=== PATIENT | female | born 1950 | race Caucasian/White ===

== ENCOUNTER → 2017-06-25 | Day surgery (SDC) | payer MEDICARE, OTHER ==
[~2017-06-25] VITALS: Ht 160 cm; Wt 91.8 kg
[~2017-06-25] MED LIST: ADVA115A INH; ASPI325T PO; CHLORHEXIDINE GLUCONATE 2 % 1 PACK (2 CLOTHS) TOPICAL PRN; DIGO0.12 PO; DIOV40TA PO; DO NOT ADM ANY ANTICOAGULANT DRUGS PRN; ESTR42.5V VAGINAL; GLUCTAB PO; INSULIN HUMAN REGULAR 1,000 UNITS/10 ML VIAL SQ PRN; LACTATED RINGER'S 1000 ML IV PRN; METOPROLOL TARTRATE 25 MG TAB PO PRN; MONT10TA2 PO; NIZA150C2 PO; ONDANSETRON HCL 4 MG/2 ML VIAL IV PUSH PRN; PERC5TAB12 PO; POVIDONE IODINE 5% (ANTISEPSIS KIT) 4 APPLICATIONS EACH NARE PRN; PROPOFOL 200 MG/20 ML AMP IV ONE; SODIUM CHLORID 0.9% 500 ML IV PRN; SPIR25 PO; SYMB160A INH; TAMS5CAP PO; TOPR100T PO; ZOFR4TAB3 SL; ceFAZolin 1,000 MG/NS 100 ML IV SCH
[2017-06-25 06:30] VITALS: BP 141/73; PULSE 94; RESP 20; TEMP 97.9; O2SAT 98
--- NOTE | 2017-06-25 06:35 | RADRPT ---
EXAM DATE/TIME: 06/25/2017 06:21 [place] COMPARISON: No previous studies available for comparison. INDICATIONS : Pre OP lithotripsy. MEDICAL HISTORY : None. SURGICAL HISTORY : None. ENCOUNTER: Initial ACUITY: 1 day PAIN SCORE: 0/10 LOCATION: Bilateral abdomen FINDINGS: Supine view of the abdomen was performed. 5 x 9 mm calcification overlies right kidney The abdominal bowel gas pattern is normal. No abnormal masses, or organomegaly is seen. The osseous structures a re unremarkable. Pacemaker overlies the heart CONCLUSION: Normal examination except for right renal calcification. Mason Lo MD on June 25, 2017 at 6:33 Board Certified Radiologist. This report was verified electronically.
[2017-06-25 07:31] LABS: AUTOMATED NEUTROPHIL # 5.1 TH/MM3 (1.8-7.7); BASOPHIL % 0.2 % (0.0-2.0); EOSINOPHIL # 0.3 TH/MM3 (0-0.4); EOSINOPHIL % 3.6 % (0.0-4.0); HEMATOCRIT 40.5 % (35.0-46.0); HEMO FLAGS DIFF FINAL; LYMPH % 31.1 % (9.0-44.0); LYMPHOCYTE # 2.7 TH/MM3 (1.0-4.8); MEAN CELL VOLUME 88.3 FL (80.0-100.0); MEAN CORPUSCULAR HEMOGLOBIN 30.2 PG (27.0-34.0); MEAN CORPUSCULAR HGB CONC 34.2 % (32.0-36.0); MONO % 6.5 % (0.0-8.0); NEUT % 58.6 % (16.0-70.0); PLATELET COUNT 242 TH/MM3 (150-450); RED BLOOD COUNT 4.59 MIL/MM3 (4.00-5.30); RED CELL DISTRIBUTION WIDTH 12.8 % (11.6-17.2); WHITE BLOOD COUNT 8.7 TH/MM3 (4.0-11.0)
--- NOTE | 2017-06-25 08:31 | PD.OP ---
Operative Report Date of Surgery: Jun 25, 2017 Preoperative Diagnosis: Right renal calculus Postoperative Diagnosis: Same Procedure: Right extracoporeal shockwave lithotripsy Anesthesia: TIVA Surgeon: Alan Mccauley Mechanical Systems Engineer(s): None Resident Surgeon: None Operation and Findings: 67-year-old female with findings of a 7 mm right lower pole stone. The patient elected to undergo right extracorporeal shockwave lithotripsy. Risk and benefits were discussed and she was willing to proceed. Patient was brought to the operating room and identified by myself as [place]. She is placed on the operating room table in the supine position and received to anesthesia. Preprocedure antibiotics were also administered. Under fluoroscopic imaging guidance and ultrasound guidance the stone was visualized in the right lower pole. Extracorporeal shockwave lithotripsy commenced with good fragmentation identified on imaging. She received a total of 2000 shocks. She tolerated the procedure well and was transferred to the recovery room in stable condition. She'll follow-up in 2 weeks and obtain an x-ray prior to her clinic visit. Alan Mccauley DO Jun 25, 2017 08:31
[2017-06-25 09:45] VITALS: BP 103/56; PULSE 81; RESP 16; TEMP 98.1; O2SAT 97
--- NOTE | 2017-06-25 14:53 | EKG ---
Date Performed: 06/25/2017 Time Performed: 06:38:39 PTAGE: 67 years EKG: Sinus rhythm WITH FREQUENT VENTRICULAR PREMATURE COMPLEXES MODERATE INTRAVENTRICULAR CONDUCTION DELAY NONSPECIFIC ST & T-WAVE ABNORMALITY ABNORMAL ECG INTERPRETATION BASED ON A DEFAULT AGE OF 40 YEARS PREVIOUS TRACING : 08/11/2014 06.53 Compared to the previous tracing, PVCs now noted DOCTOR: Joseluis Nuñez Interpretating Date/Time 06/25/2017 14:51:13
== END | disposition home or self-care (01) ==
LOC: HSDC 05:37
PROVIDERS: ATTEND Urology
DX: N20.0 Calculus of kidney (principal); I10 Essential (primary) hypertension; E11.9 Type 2 diabetes mellitus without complications; I49.9 Cardiac arrhythmia, unspecified; J45.909 Unspecified asthma, uncomplicated; K21.9 Gastro-esophageal reflux disease without esophagitis; M19.90 Unspecified osteoarthritis, unspecified site; Z01.810 Encounter for preprocedural cardiovascular examination; Z95.810 Presence of automatic (implantable) cardiac defibrillator; Z87.440 Personal history of urinary (tract) infections; Z79.84 Long term (current) use of oral hypoglycemic drugs; Z79.82 Long term (current) use of aspirin; Z79.899 Other long term (current) drug therapy
CPT/HCPCS: 00872; 50590; 74000; 85025; 93005; J0690; J7120

== ENCOUNTER 2017-08-16 16:23 | Emergency (ER) | payer MEDICARE, OTHER ==
[~2017-08-16] VITALS: Ht 160 cm; Wt 89.0 kg
[~2017-08-16 16:23] MED LIST changes: -CHLORHEXIDINE GLUCONATE 2 % 1 PACK (2 CLOTHS) TOPICAL PRN; -DO NOT ADM ANY ANTICOAGULANT DRUGS PRN; -ESTR42.5V VAGINAL; -INSULIN HUMAN REGULAR 1,000 UNITS/10 ML VIAL SQ PRN; -LACTATED RINGER'S 1000 ML IV PRN; -METOPROLOL TARTRATE 25 MG TAB PO PRN; -ONDANSETRON HCL 4 MG/2 ML VIAL IV PUSH PRN; -PERC5TAB12 PO; -POVIDONE IODINE 5% (ANTISEPSIS KIT) 4 APPLICATIONS EACH NARE PRN; -PROPOFOL 200 MG/20 ML AMP IV ONE; -SODIUM CHLORID 0.9% 500 ML IV PRN; -SYMB160A INH; -TAMS5CAP PO; -ZOFR4TAB3 SL; -ceFAZolin 1,000 MG/NS 100 ML IV SCH
[2017-08-16 16:25] VITALS: BP 126/58; PULSE 77; RESP 13; TEMP 97.8; O2SAT 95
--- NOTE | 2017-08-16 17:22 | PD ---
HPI . Right flank pain Chief Complaint: Complaint Time Seen by Provider: 17:10 Travel History International Travel<30 days: No Contact w/Intl Traveler<30days: No Traveled to known affect area: No History of Present Illness HPI Patient presents with chief complaint right flank pain. Onset was this morning. The pain waxes and wanes but does not completely go away. She rates it 10/10 at its maximum. No modifying factors. She denies any associated dysuria, frequency, urgency or hematuria. She has had nausea and vomiting. She denies fever. The patient has a known history of kidney stones. She states that she underwent lithotripsy. She was told that she had a residual small right kidney stone at that time. She had not had any difficulty with it until today. PFSH Past Medical History Arthritis: No Asthma: Yes Autoimmune Disease: No Blood Disorders: No Anxiety: No Depression: No Heart Rhythm Problems: No Cancer: No Cardiovascular Problems: Yes Chemotherapy: No Chest Pain: No Congestive Heart Failure: No COPD: No Cerebrovascular Accident: No Diabetes: Yes (METFORMIN 08/15/17) Diminished Hearing: No Endocrine: Yes Gastrointestinal Disorders: No GERD: Yes Glaucoma: No Genitourinary: No Headaches: No Hepatitis: No Hiatal Hernia: Yes Hypertension: Yes Immune Disorder: No Kidney Stones: No Musculoskeletal: No Neurologic: No Psychiatric: No Reproductive: No Respiratory: Yes (ASTHMA) Integumentary: No Immunizations Current: Yes Migraines: No Myocardial Infarction: No Radiation Therapy: No Renal Failure: No Seizures: No Sickle Cell Disease: No Sleep Apnea: No Thyroid Disease: No Ulcer: No PNEUMOCCOCAL Vaccine (Year): 2008 Past Surgical History Abdominal Surgery: No AICD: Yes Appendectomy: No Arteriovenous Shunt: No Cardiac Surgery: Yes (AICD -) Cholecystectomy: No Ear Surgery: No Endocrine Surgery: No Eye Surgery: No Genitourinary Surgery: No Gynecologic Surgery: No Insulin Pump: No Joint Replacement: No Oral Surgery: Yes (TONSILECTOMY) Pacemaker: Yes (MEDTRONIC) Thoracic Surgery: No Tonsillectomy: Yes Other Surgery: Yes Social History Alcohol Use: No Tobacco Use: No Substance Use: No Allergies-Medications (Allergen,Severity, Reaction): Coded Allergies: choline fenofibrate (Unverified Allergy, Severe, 08/16/17) codeine (Unverified Allergy, Severe, 08/16/17) azithromycin (Unverified Adverse Reaction, Severe, GI , 08/16/17) levofloxacin (Unverified Adverse Reaction, Intermediate, Dizziness, ) Uncoded Allergies: SELDANE (Adverse Reaction, Severe, GI, 11/24/08) Reported Meds & Prescriptions Reported Meds & Active Scripts Active Flomax (Tamsulosin HCl) 0.4 Mg Cap 0.4 Mg PO HS Zofran Odt (Ondansetron Odt) 4 Mg Tab 4 Mg SL Q6HR PRN Percocet (Oxycodone-Acetaminophen) 5-325 mg Tab 1 Tab PO Q4H PRN Reported Advair Hfa 12 GM Inh (Fluticasone-Salmeterol 12 GM Inh) 115-21 Mcg/Act Aer 2 Puff INH BID Aspirin 325 Mg Tab 325 Mg PO DAILY Toprol XL (Metoprolol Succinate) 100 Mg Tab 100 Mg PO DAILY Singulair (Montelukast Sodium) 10 Mg Tab 10 Mg PO HS Glucophage XR (Metformin HCl) 500 Mg Escobar 500 Mg PO BID PRN With evening meal Diovan (Valsartan) 40 Mg Tab 40 Mg PO DIRECTED PT TAKES AT 4PM Digoxin 0.125 Mg Tab 0.125 Mg PO EVERY OTHER DAY Aldactone (Spironolactone) 25 Mg Tab 25 Mg PO DAILY Nizatidine 150 Mg Cap 150 Mg PO BID Review of Systems Except as stated in HPI: all other systems reviewed are Neg General / Constitutional: No: Fever, Chills Gastrointestinal: Positive: Nausea, Vomiting Genitourinary: Positive: Flank Pain, No: Urgency, Frequency, Dysuria Physical Exam Narrative GENERAL: Patient is awake and alert and does not appear to be in any distress. SKIN: Warm and dry. HEAD: Normocephalic/atraumatic. EYES: Pupils are equal. Extraocular movements are intact. NECK: Full range of motion with no apparent pain. CARDIOVASCULAR: Regular rate and rhythm. RESPIRATORY: Nonlabored respirations. ABDOMEN: No CVA tenderness. No abdominal tenderness. MUSCULOSKELETAL: Atraumatic. NEUROLOGICAL: Nonfocal. PSYCHIATRIC: Appropriate mood and affect. Data Data Last Documented VS Vital Signs Date Time Temp Pulse Resp B/P (MAP) Pulse Ox O2 Delivery O2 Flow Rate FiO2 08/16/17 17:48 16 08/16/17 16:25 97.8 77 126/58 (80) 95 Orders Orders Sodium Chlor 0.9% 1000 Ml Inj (Ns 1000 M (08/16/17 17:30) Morphine Inj (Morphine Inj) (08/16/17 17:30) Ondansetron Inj (Zofran Inj) (08/16/17 17:30) Urinalysis - C+S If Indicated (08/16/17 17:16) Labs Laboratory Tests Test 08/16/17 17:30 Urine Color YELLOW Urine Turbidity HAZY Urine pH 5.0 Urine Specific [place] 1.024 Urine Protein 30 mg/dL Urine Glucose (UA) NEG mg/dL Urine Ketones 10 mg/dL Urine Occult Blood LARGE Urine Nitrite NEG Urine Bilirubin NEG Urine Urobilinogen LESS THAN 2.0 MG/DL Urine Leukocyte Esterase NEG Urine RBC 103 /hpf Urine WBC 5 /hpf Urine Squamous Epithelial Cells 1 /hpf Urine Hyaline Casts 1 /lpf Urine Mucus FEW /lpf Microscopic Urinalysis Comment CULT NOT INDICATED MDM Medical Decision Making Medical Screen Exam Complete: Yes Emergency Medical Condition: Yes Differential Diagnosis Differential diagnosis of flank pain includes but is not limited to kidney stone , pyelonephritis, musculoskeletal pain, PE Narrative Course This patient presents complaining with right flank pain. She states that she has a known kidney stone on the right. Therefore, I have not ordered any radiographic studies. She is being treated with IV fluids and IV analgesics. UA will be checked. 5:45 PM The patient reports that her symptoms are markedly improved. UA shows blood but no evidence of infection. She'll be discharged home with prescriptions for Percocet, Zofran and Flomax. She is to follow-up with her urologist next week. Diagnosis Primary Impression: Kidney stone Referrals: Alan Mccauley DO 3 days Patient Instructions: Narcotic given in the ED Med/Other Pt SpecificInfo: Prescription(s) given Scripts Tamsulosin (Flomax) 0.4 Mg Cap 0.4 MG PO HS for Manage Prostate Problems, #30 CAP 0 Refills Prov: Ashanti Padilla MD 08/16/17 Ondansetron Odt (Zofran Odt) 4 Mg Tab 4 MG SL Q6HR Y for Nausea/Vomiting, #30 TAB 0 Refills Prov: Ashanti Padilla MD 08/16/17 Oxycodone-Acetaminophen (Percocet) 5-325 mg Tab 1 TAB PO Q4H Y for PAIN, #12 TAB 0 Refills Prov: Ashanti Padilla MD 08/16/17 Disposition: 01 DISCHARGE HOME Condition: Stable Ashanti Padilla MD Aug 16, 2017 17:22
[2017-08-16] MEDS ORDERED: ONDANSETRON HCL 4 MG/2 ML VIAL IV PUSH ONE (17:30)
[2017-08-16] MEDS ORDERED: MORPHINE SULFATE 4 MG/ML INJ IV PUSH ONE (17:30)
[2017-08-16] MEDS ORDERED: SODIUM CHLOR 0.9% 1000 ML INJ 1,000 ML IV ONE (17:30)
[2017-08-16 17:48] VITALS: RESP 16
[2017-08-16] MEDS ORDERED: TAMS5CAP PO (18:07)
[2017-08-16] MEDS ORDERED: ZOFR4TAB3 SL (18:07)
[2017-08-16] MEDS ORDERED: PERC5TAB12 PO (18:07)
[2017-08-16 18:18] LABS: BLOOD, URINE LARGE (NEG); COMMENT (UR) CULT NOT INDICATED; CULTURE IF INDICATED CULT NOT INDICATED; GLUCOSE,URINE NEG (NEG); HYALINE CAST, URINE 1 /lpf (RARE); KETONE, URINE 10 mg/dL (NEG); MUCUS URINE FEW /lpf (OCC); NITRITE,URINE NEG (NEG); SQUAMOUS EPITHELIAL CELL URINE 1 /hpf (0-5); URINE COLOR YELLOW (YELLW/STRAW)
== END 2017-08-16 18:53 | disposition home or self-care (01) ==
LOC: NEPD 16:23
DX: N20.0 Calculus of kidney (principal); E11.9 Type 2 diabetes mellitus without complications; Z79.84 Long term (current) use of oral hypoglycemic drugs; Z87.442 Personal history of urinary calculi
CPT/HCPCS: 81001; 96361; 96374; 96375; 99284; J2270; J2405; J7030